=== PATIENT | male | born 1965 | race Caucasian/White ===

== ENCOUNTER 2024-06-03 08:11 | Outpatient (RCR) | payer BC, SELFPAY ==
--- NOTE | 2024-06-03 09:01 | OPREHPOC ---
Outpatient Therapy Plan of Care This is a Multidisciplinary Plan of Care that may contain components documented by all disciplines (PT, OT, and ST.) PT Problem 1 PT Problem #1 Knowledge Deficit PT Goal 1 Goal / Goal Update *independent with HEP Target Visit 8 PT Problem 2 PT Problem #2 Impaired Flexibility PT Goal 1 Goal / Goal Update increase hip flexibility to decrease strain on knee: 1* hamstring with supine SLR to 55' 2* piriformis with supine cross leg stretch- knee to midline of body 3* anterior hip/quad with prone knee flexion 110' Target Visit 6 PT Problem 3 PT Problem #3 Impaired Strength PT Goal 1 Goal / Goal Update *increase strength and stability of hip/knee 1* single leg standing x 10 seconds with good stability 2* gait 150' without limp/ good weight shift R/L Target Visit 6
--- NOTE | 2024-06-03 09:01 | PTOPEVAL1 ---
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 and knee started hurting more--comes and goes; have worked at this job about 5 weeks; work 12 hour shifts; have lost some weight and shift weight back and forth between legs and that helps some am careful on stairs, do not want to re-hurt my knee; want to get some exercises to help my knee and find out what is wrong with it; have not had any imaging on knee; said had to have PT before can get an MRI activity: active lifestyle, walk dog, 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; 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; 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 runner, done physical work his whole life; can do everything, but hurts my knee; want to get back into the exercise routine to get stronger, not been as active as should be; Reported Pain Level Pain Score Self Report Additional Pain Score Comments pain range in the past week 1-07/10; medial knee increase pain: standing at work, kneel decrease pain: ice, naproxen, copper sleeve, sit/ rest trying to eat carnivore diet, no sugar or carbs-- helps the knee some sleeping awaken from sleep 1-2 x/night due to knee pain; sleep with pillow between knees Assessment PT Clinical Summary Wilfrid has the diagnosis of L knee pain. He reports onset about 4 months ago, with gradual increase in pain/ no injury to LE. LE functional scale of 80% limitation in activity level. 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 Pain is awakening him from sleep 1-2 x/night. After the evaluation, he reported knee feels a little better from moving it around. With the evaluation: he has good ROM of L knee without pain; tightness over hip--hip flexion, piriformis and hamstring muscle groups; poor single leg standing --unsteady and few seconds bilateral. Skilled PT services are indicated for modalities PRN for pain; therapeutic exercises to increase flexibility of hip muscles and increase stability of L LE with education for HEP. Plan of Care Interventions Electrical Stimulation,Hot Pack/Cold Pack,Manual Therapy,Neuro Re-education,Patient/Caregiver Education,Therapeutic Activities,Therapeutic Exercise,Ultrasound,Other Other Interventions taping PT Services Indicated Yes Treatment Frequency and 1-2x/wk for 6 visits Duration These treatments will address the objective and functional deficits as defined above. The patient will be advanced safely and appropriately in order for the patient to progress towards his/her prior level of function. Additional exercises will be introduced and as well as a comprehensive home exercise program upon discharge, if needed, to ensure carryover of functional gains achieved in the clinic. This treatment plan has been reviewed and agreement upon by the patient.
--- NOTE | 2024-06-03 09:02 | PCPTNOTE ---
pt was 15 minutes late for initial evaluation.
--- NOTE | 2024-07-21 10:43 | OPREHPOC ---
Outpatient Therapy Plan of Care This is a Multidisciplinary Plan of Care that may contain components documented by all disciplines (PT, OT, and ST.) PT Problem 1 PT Problem #1 Knowledge Deficit PT Goal 1 Goal / Goal Update *independent with HEP 07-21-24 d/c goals were not addressed. pt stopped attending therapy Target Visit 8 PT Problem 2 PT Problem #2 Impaired Flexibility PT Goal 1 Goal / Goal Update increase hip flexibility to decrease strain on knee: 1* hamstring with supine SLR to 55' 2* piriformis with supine cross leg stretch- knee to midline of body 3* anterior hip/quad with prone knee flexion 110' 07-21-24 d/c goals were not addressed. pt stopped attending therapy Target Visit 6 PT Problem 3 PT Problem #3 Impaired Strength PT Goal 1 Goal / Goal Update *increase strength and stability of hip/knee 1* single leg standing x 10 seconds with good stability 2* gait 150' without limp/ good weight shift R/L 07-21-24 d/c goals were not addressed. pt stopped attending therapy Target Visit 6
--- NOTE | 2024-07-21 10:43 | PTOPDC ---
Assessment and note entered by Portia Hernandez, PT Assessment Status Discharge - Pt Not Present ICD-10 Condition Codes (PT) Pain in left knee M25.562 Onset Feb 2024 Subjective Information pt was not seen this date. Assessment PT Clinical Summary Wilfrid received the PT evaluation on June 03 and did not return for any treatment. Discharge PT. The goals were not addressed. Plan of Care PT Services Indicated No
== END 2024-07-21 13:19 | disposition home or self-care (01) ==
LOC: ANHPT 08:11
PROVIDERS: PCP Internal Medicine; Visit Provider Nurse Practitioner
DX: M25.562 Pain in left knee (principal)
CPT/HCPCS: 97110; 97161